=== PATIENT | female | born 1990 | race Caucasian/White ===

== ENCOUNTER 2019-10-05 20:25 | Emergency (ER) | payer SELFPAY ==
[2019-10-05 22:05] LABS: Urine Blood 2+ (NEG); Urine Glucose NEGATIVE (NEG); Urine Protein NEGATIVE (NEG)
[2019-10-05] MEDS ORDERED: KETOROLAC 30 MG/ML INJ ONE (23:34)
[2019-10-05 23:40] LABS: Absolute Lymphocytes (CBC) 1.7 K/uL (0.7-4.9); Basophils % 0.2 % (0-1.3); Hematocrit 43.8 % (36.0-45.0); Lymphocytes % 15.2 % (15.3-44.8); MPV 8.1 fL (7.6-11.3); RBC Red Blood Cell Count 4.39 M/uL (3.86-4.86)
[2019-10-05 23:55] LABS: Albumin 3.6 g/dL (3.4-5.0); Bilirubin Direct 0.2 mg/dL (0-0.2); Bilirubin Total 0.5 mg/dL (0.2-1.0); Potassium 3.6 mmol/L (3.5-5.1); Protein, Total 7.5 g/dL (6.4-8.2)
--- NOTE | 2019-10-06 01:37 | EDPHYS ---
Physician Documentation [facility] Name: Sea Bowen Age: 28 yrs Sex: Female : 1990 Arrival Date: 10/05/2019 Time: 20:28 Bed 14 Private MD: ED Physician Moreno Cloud HPI: 10/06 01:16 This 28 yrs old Female presents to ER via Ambulatory with complaints of tw4 Shortness Of Breath, TIGHTNESS IN CHEST. 01:16 The patient presents with abdominal pain. Onset: The symptoms/episode began/occurred tw4 today. The symptoms do not radiate. Associated signs and symptoms: Pertinent positives: chest pain, shortness of breath, Pertinent negatives: nausea, vomiting, and diarrhea, nausea and vomiting, anorexia, blood in stools, dysuria, fever, headache, hematuria, nausea, palpitations, vaginal discharge, vomiting, vomiting blood. The symptoms are described as dull. Modifying factors: The symptoms are alleviated by nothing, the symptoms are aggravated by nothing. Severity of pain: At its worst the pain was moderate in the emergency department the pain has resolved. The patient has not experienced similar symptoms in the past. [place]: 10/05 20:42 LMP 09/15/2019 tl1 Historical: - Allergies: 20:41 Codeine; tl1 - Home Meds: 20:41 None [Active]; tl1 - PMHx: 20:41 None; tl1 - PSHx: 20:41 ; tl1 - Immunization history:: Adult Immunizations unknown. - Social history:: Smoking status: Patient reports the use of cigarette tobacco products, smokes one pack cigarettes per day. Patient uses alcohol, on a daily basis. - Ebola Screening: : Patient negative for fever greater than or equal to 101.5 degrees Fahrenheit, and additional compatible Ebola Virus Disease symptoms Patient denies exposure to infectious person Patient denies travel to an Ebola-affected area in the 21 days before illness onset. ROS: 10/06 01:16 Constitutional: Negative for fever, chills, and weight loss, Eyes: Negative for injury, tw4 pain, redness, and discharge, Respiratory: Negative for shortness of breath, cough, wheezing, and pleuritic chest pain. Back: Negative for injury and pain, MS/Extremity: Negative for injury and deformity, Skin: Negative for injury, rash, and discoloration, Neuro: Negative for headache, weakness, numbness, tingling, and seizure. Cardiovascular: Positive for chest pain, Negative for edema, orthopnea, palpitations, paroxysmal nocturnal dyspnea. Abdomen/GI: Positive for abdominal pain, constipation, Negative for nausea and vomiting, nausea, vomiting, and diarrhea, nausea, vomiting, diarrhea, abdominal cramps, abdominal distension, anorexia, dysphagia. Exam: 01:16 Constitutional: This is a well developed, well nourished patient who is awake, alert, tw4 and in no acute distress. Head/Face: Normocephalic, atraumatic. Chest/axilla: Normal chest wall appearance and motion. Nontender with no deformity. No lesions are appreciated. Cardiovascular: Regular rate and rhythm with a normal S1 and S2. No gallops, murmurs, or rubs. Normal PMI, no JVD. No pulse deficits. Respiratory: Lungs have equal breath sounds bilaterally, clear to auscultation and percussion. No rales, rhonchi or wheezes noted. No increased work of breathing, no retractions or nasal flaring. Abdomen/GI: Soft, non-tender, with normal bowel sounds. No distension or tympany. No guarding or rebound. No evidence of tenderness throughout. Back: No spinal tenderness. No costovertebral tenderness. Full range of motion. MS/ Extremity: Pulses equal, no cyanosis. Neurovascular intact. Full, normal range of motion. Neuro: Awake and alert, GCS 15, oriented to person, place, time, and situation. Cranial nerves II-XII grossly intact. Motor strength 5/5 in all extremities. Sensory grossly intact. Cerebellar exam normal. Normal gait. Vital Signs: 10/05 20:42 BP 126 / 91; Pulse 95; Resp 19; Temp 99.1(O); Pulse Ox 100% ; Weight 54.43 kg; Height 5 tl1 ft. 1 in. (154.94 cm); Pain 0/10; 21:37 BP 135 / 103; Pulse 88; Resp 17 S; Pulse Ox 100% on R/A; ca1 23:00 BP 126 / 93; Pulse 95; Resp 16; Pulse Ox 98% on R/A; jb4 10/06 01:17 BP 108 / 73; Pulse 88; Resp 16; Pulse Ox 100% on R/A; jb4 10/05 20:42 Body Mass Index 22.67 (54.43 kg, 154.94 cm) tl1 MDM: 10/05 21:44 Patient medically screened. 10/06 01:16 Differential diagnosis: bowel obstruction, cholecystitis, diverticulitis, non-specific tw4 abd pain, Perf. Gastric Ulcer. Data reviewed: vital signs, nurses notes. Data reviewed: lab test result(s), CBC, electrolytes, hepatic panel. Data interpreted: Pulse oximetry: Interpretation: normal. Counseling: I had a detailed discussion with the patient and/or guardian regarding: the historical points, exam findings, and any diagnostic results supporting the discharge/admit diagnosis. Medication response: Toradol relieved patient's pain. The symptoms have resolved. Response to treatment: and as a result, I will discharge patient. Special discussion: Based on the patient's Hx, exam, and Dx evaluation, there is no indication for emergent surgery or inpatient Tx. It is understood by the patient/guardian that if the Sx's persist or worsen they need to return immediately for re-evaluation. I discussed with the patient/guardian in detail that at this point there is no indication for admission to the hospital. It is understood, however, that if the symptoms persist or worsen the patient needs to return immediately for re-evaluation. 10/05 21:27 Order name: Urine Dipstick--Ancillary (enter results) [facility] 10/05 21:27 Order name: Urine --Ancillary (enter results) [facility] 10/05 21:28 Order name: Urine Dipstick-Ancillary [facility] 10/05 21:28 Order name: Urine --Ancillary [facility] 10/05 23:08 Order name: Basic Metabolic Panel [facility] 10/05 23:08 Order name: CBC with Diff [facility] 10/05 20:48 Order name: EKG; Complete Time: 20:49 aa1 10/05 20:48 Order name: XRAY Abdomen 1 View (KUB) aa1 10/05 21:36 Order name: XRAY Chest (1 view) ca1 10/05 23:08 Order name: Creatinine for Radiology [facility] 10/05 23:08 Order name: Hepatic Function [facility] 10/05 23:08 Order name: Lipase [facility] 10/05 23:08 Order name: CT Abd/Pelvis - IV Contrast Only [facility] 10/05 20:48 Order name: EKG - Nurse/Tech; Complete Time: 20:54 aa1 10/05 23:08 Order name: IV Saline Lock; Complete Time: 23:23 tw4 10/05 23:08 Order name: Labs collected and sent; Complete Time: 23:23 tw4 Administered Medications: 10/05 23:30 Drug: TORadol 30 mg Route: IVP; Site: left antecubital; jb4 10/06 00:00 Follow up: Response: No adverse reaction; Pain is decreased jb4 Disposition: 10/06/19 01:36 Discharged to Home. Impression: Other viral enteritis. - Condition is Stable. - Discharge Instructions: Viral Gastroenteritis, Adult, [id number]. - Prescriptions for Zofran 4 mg Oral Tablet - take 1 tablet by ORAL route every 12 hours As needed; 6 tablet. Lomotil 2.5- 0.025 mg Oral Tablet - take 1 tablet by ORAL route every 6 hours As needed; 20 tablet. - Medication Reconciliation Form, Thank You Letter, Antibiotic Education, Prescription Opioid Use form. - Follow up: Private Physician; When: Upon discharge from the Emergency Department; Reason: Recheck today's complaints, Continuance of care. - Problem is new. - Symptoms have improved. Signatures: Dispatcher [employer] EDAyala Becerra RN RN aa1 Aby Maradiaga, RN RN tl1 Bran De Jesus RN RN jb4 Moreno Cloud MD MD tw4 Corrections: (The following items were deleted from the chart) 02:01 01:36 10/06/2019 01:36 Discharged to Home. Impression: Other viral enteritis. Condition jb4 is Stable. Forms are Medication Reconciliation Form, Thank You Letter, Antibiotic Education, Prescription Opioid Use. Follow up: Private Physician; When: Upon discharge from the Emergency Department; Reason: Recheck today's complaints, Continuance of care. Problem is new. Symptoms have improved. tw4
--- NOTE | 2019-10-06 01:37 | ER ---
Nurse's Notes [facility] Name: Sea Bowen Age: 28 yrs Sex: Female : 1990 Arrival Date: 10/05/2019 Time: 20:28 Bed 14 Private MD: Diagnosis: Other viral enteritis Presentation: 10/05 20:39 Presenting complaint: Patient states: I felt constipated all day and took some milk of tl1 magnesia and then started having chest tightness, shortness of breath and chest heaviness. I drank a lot of alcohol yesterday and thought the medicine would help. I drink frequently. Transition of care: patient was not received from another setting of care. Onset of symptoms was October 05, 2019. Risk Assessment: Do you want to hurt yourself or someone else? Patient reports no desire to harm self or others. Initial Sepsis Screen: Does the patient meet any 2 criteria? No. Patient's initial sepsis screen is negative. Does the patient have a suspected source of infection? No. Patient's initial sepsis screen is negative. Care prior to arrival: None. 20:39 Method Of Arrival: Ambulatory tl1 20:39 Acuity: MAHESH 3 tl1 Triage Assessment: 20:54 Respiratory: the patient has mild shortness of breath. 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 - Social history:: Smoking status: Patient reports the use of cigarette tobacco products, smokes one pack cigarettes per day. Patient uses alcohol, on a daily basis. - Ebola Screening: : Patient negative for fever greater than or equal to 101.5 degrees Fahrenheit, and additional compatible Ebola Virus Disease symptoms Patient denies exposure to infectious person Patient denies travel to an Ebola-affected area in the 21 days before illness onset. Screenin:49 Abuse screen: Denies threats or abuse. Denies injuries from another. Nutritional ca1 screening: No deficits noted. Tuberculosis screening: No symptoms or risk factors identified. Fall Risk IV access (20 points). Assessment: 20:49 General: Appears in no apparent distress. comfortable, Behavior is calm, cooperative, ca1 appropriate for age. Pain: Complains of pain in mid-sternal area, right breast and left breast Pain does not radiate. Pain currently is 6 out of 10 on a pain scale. Quality of pain is described as pressure, Pain began today Is intermittent. Pain: Also complains of nausea. Neuro: Neuro: Level of Consciousness is awake, alert, obeys commands, Oriented to person, place, time, situation, Appropriate for age. Cardiovascular: Heart tones S1 S2 Capillary refill < 3 seconds Patient's skin is warm and dry. Rhythm is sinus rhythm. Cardiovascular: Reports lightheadedness. Respiratory: Reports shortness of breath Airway is patent Trachea midline Respiratory effort is even, unlabored, Respiratory pattern is regular, Breath sounds are clear bilaterally. Respiratory: Denies cough. GI: Abdomen is round non-distended, Bowel sounds present X 4 quads. Abd is soft and non tender X 4 quads. : No deficits noted. No signs and/or symptoms were reported regarding the genitourinary system. EENT: No deficits noted. No signs and/or symptoms were reported regarding the EENT system. Derm: Skin is intact, is healthy with good turgor, Skin is pink, warm \T\ dry. Musculoskeletal: Circulation, motion, and sensation intact. Capillary refill < 3 seconds. 21:37 Reassessment: Patient appears in no apparent distress at this time. Patient is alert, ca1 oriented x 3, equal unlabored respirations, skin warm/dry/pink. Xray at bedside. 22:15 Reassessment: Patient appears in no apparent distress at this time. Patient and/or jb4 family updated on plan of care and expected duration. Pain level reassessed. Patient is alert, oriented x 3, equal unlabored respirations, skin warm/dry/pink. Provider notified of patients pain, no new orders at this time. 23:30 Reassessment: Patient appears in no apparent distress at this time. Patient and/or jb4 family updated on plan of care and expected duration. Pain level reassessed. Patient is alert, oriented x 3, equal unlabored respirations, skin warm/dry/pink. 10/06 01:17 Reassessment: Patient appears in no apparent distress at this time. Patient and/or jb4 family updated on plan of care and expected duration. Pain level reassessed. Patient is alert, oriented x 3, equal unlabored respirations, skin warm/dry/pink. Patient states feeling better. 02:00 Reassessment: Patient appears in no apparent distress at this time. Patient and/or jb4 family updated on plan of care and expected duration. Pain level reassessed. Patient is alert, oriented x 3, equal unlabored respirations, skin warm/dry/pink. Vital Signs: 10/05 20:42 BP 126 / 91; Pulse 95; Resp 19; Temp 99.1(O); Pulse Ox 100% ; Weight 54.43 kg; Height 5 tl1 ft. 1 in. (154.94 cm); Pain 0/10; 21:37 BP 135 / 103; Pulse 88; Resp 17 S; Pulse Ox 100% on R/A; ca1 23:00 BP 126 / 93; Pulse 95; Resp 16; Pulse Ox 98% on R/A; jb4 10/06 01:17 BP 108 / 73; Pulse 88; Resp 16; Pulse Ox 100% on R/A; jb4 10/05 20:42 Body Mass Index 22.67 (54.43 kg, 154.94 cm) tl1 ED Course: 10/05 20:28 Patient arrived in ED. cf2 20:36 Geetha Gutierrez, RN is Primary Nurse. ca1 20:41 Triage completed. tl1 20:43 Arm band placed on right wrist. tl1 20:43 EKG completed in triage. Results shown to MD. tl1 20:49 Patient has correct armband on for positive identification. Placed in gown. Bed in low ca1 position. Call light in reach. Side rails up X 1. lunchroom monitor on. Pulse ox on. NIBP on. Warm blanket given. 20:49 No provider procedures requiring assistance completed. ca1 20:55 Initial lab(s) drawn, by me, sent to lab. EKG done, by ED staff, reviewed by Moreno Cloud MD. 21:44 Moreno Cloud MD is Attending Physician. tw4 21:46 XRAY Abdomen 1 View (KUB) In Process Unspecified. EDMS 21:46 XRAY Chest (1 view) In Process Unspecified. EDMS 22:27 Notified ED physician of other patient belly pain. jaya3 23:22 Inserted saline lock: 22 gauge in left antecubital area, using aseptic technique. Blood jp3 collected. 23:23 Urine --Ancillary (enter results) Sent. jp3 23:23 Urine Dipstick--Ancillary (enter results) Sent. jp3 10/06 00:51 CT Abd/Pelvis - IV Contrast Only In Process Unspecified. EDMS 02:00 IV discontinued, intact, bleeding controlled, No redness/swelling at site. Pressure jb4 dressing applied. Administered Medications: 10/05 23:30 Drug: TORadol 30 mg Route: IVP; Site: left antecubital; jb4 10/06 00:00 Follow up: Response: No adverse reaction; Pain is decreased jb4 Outcome: 01:36 Discharge ordered by . tw4 02:00 Discharged to home ambulatory, with significant other. jb4 02:00 Condition: stable 02:00 Discharge instructions given to patient, significant other, Instructed on discharge instructions, follow up and referral plans. medication usage, Demonstrated understanding of instructions, follow-up care, medications, Prescriptions given X 2. 02:01 Patient left the ED. jb4 Signatures: Dispatcher [employer] EDMS Aby Maradiaga, RN RN tl1 Bran De Jesus RN RN jb4 Moreno Cloud MD MD tw4 Adrián Flores jp3 Geetha Gutierrez RN RN [facility] Briana Phillips cf2
--- NOTE | 2019-10-06 08:12 | RAD REPORT ---
EXAM DESCRIPTION: Parag Single View10/05/2019 9:46 pm CLINICAL HISTORY: Chest pain COMPARISON: none FINDINGS: The lungs appear clear of acute infiltrate. The heart is normal size IMPRESSION: No acute abnormalities displayed
--- NOTE | 2019-10-06 08:18 | RAD REPORT ---
EXAM DESCRIPTION: RAD - Abdomen 1 View (KUB) - 10/05/2019 9:46 pm CLINICAL HISTORY: Constipation FINDINGS: The bowel gas pattern is unremarkable. There does not appear to a large amount of stool wi thin the colon No abnormal calcifications seen.
--- NOTE | 2019-10-06 10:19 | RAD REPORT ---
EXAM DESCRIPTION: CT - Abdomen Pelvis W Contrast - 10/06/2019 2:32 am CLINICAL HISTORY: 28-year-old female with abdominal pain TECHNIQUE: Axial CT imaging of the abdomen and pelvis was performed following the administration of intravenous contrast.. Sagittal and coronal reconstructed images were then performed. The CT stud y is performed according to ALARA (as low as reasonably achievable) or ALARA/IMAGE GENTLY, with autom atic adjustment of mA and/or kV according to patient size. Performed on: 10/06/2019 at 12:45 AM. COMPARISON: None FINDINGS: Lung bases: The lung bases are clear. Liver: The liver is normal in size and configuration. No focal hepatic abnormalities are identified. Liver attenuation is within normal limits. Spleen: The spleen is normal is size, configuration and attenuation. Gallbladder and bile duct: The gallbladder is well distended and unremarkable. There is no biliary ductal dilatation. Pancreas: The pancreas is grossly normal in size and configuration. Adrenal Glands: The adrenal glands are normal in size and configuration. Kidneys: The kidneys are normal in size and configuration. There is no evidence of hydronephrosis. Th ere is no evidence of nephrolithiasis. No definite solid or cystic renal mass lesions are identified. Stomach: The stomach is grossly normal. There is no definite hiatal hernia. Bowel: The bowel gas pattern is non specific and non obstructive. The cecum and ascending colon are d istended with fluid and there is very colonic wall thickening along the ascending colon. Findings are nonspecific but could reflect mild colitis and/or diarrheal disease. Appendix: The appendix is normal. Free air: There is no evidence of free air. Free fluid: There is no evidence of free fluid. Vasculature: The aorta is normal in caliber and contour. The inferior vena cava is grossly unremarkab le. Lymphadenopathy: No pathologic lymphadenopathy is identified. Bladder: The bladder is incompletely distended on this examination. Reproductive: The uterus is grossly within normal limits. Bones: No acute osseous abnormalities are identified. Soft tissues: No focal soft tissue abnormalities are identified. IMPRESSION: 1. The cecum and ascending colon are distended with fluid and there is very mild colonic wall thickening along the ascending colon. Findings are nonspecific but could reflect mild colitis a nd/or diarrheal disease. 2. Otherwise, unremarkable contrast-enhanced CT scan of the abdomen and pelvis. 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 The interpreting radiologist is f ully responsible for the content of the report.
--- NOTE | 2019-10-06 14:01 | EKG ---
Test Date: 2019-10-05 Test Time: 20:40:32 [facility]: [place] MEASUREMENT RESULTS: Intervals: Rate: 94 LA: 142 QRSD: 74 QT: 342 QTc: 427 [place]: P: 42 LA: 142 QRS: 64 T: 46 INTERPRETIVE STATEMENTS: Normal sinus rhythm Possible Left atrial enlargement Borderline ECG No previous ECG available for comparison Electronically Signed On 10-06-19 14:00:08 DIGITAL OPERATIONS ANALYST by Ambrose Garcia
[2019-10-06 17:05] VITALS: TEMP 99.1
[2019-10-06 17:09] VITALS: BP 108/73; O2SAT 100
== END 2019-10-06 02:01 | disposition home or self-care (01) ==
LOC: ER 20:25
DX: A08.39 Other viral enteritis (principal); R10.9 Unspecified abdominal pain; Z72.0 Tobacco use; Z88.5 Allergy status to narcotic agent
CPT/HCPCS: 36415; 71045; 74018; 74177; 80048; 80076; 81003; 81025; 83690; 85025; 93005; 96374; 99285; Q9967

== ENCOUNTER 2020-03-08 18:04 | Emergency (ER) | payer SELFPAY ==
--- NOTE | 2020-03-08 19:58 | RAD REPORT ---
EXAM DESCRIPTION: RAD - Chest Single View - 03/08/2020 7:19 pm CLINICAL HISTORY: cough, fever, SOB COMPARISON: Portable September 2019 TECHNIQUE: AP portable chest image was obtained 03/08/2020 7:19 pm . FINDINGS: Small portion of each apex was excluded from view. Lung dacosta are clear. Interstitial mar kings match comparison. Heart and vasculature are normal. No measurable pleural effusion and no pneum othorax. No acute bony abnormality seen. No acute aortic findings suspected. IMPRESSION: No acute cardiopulmonary process.
--- NOTE | 2020-03-08 20:26 | EDPHYS ---
Physician Documentation [facility] Name: Sea Bowen Age: 29 yrs Sex: Female : 1990 Arrival Date: 03/08/2020 Time: 18:07 Bed 19 Private MD: ED Physician John Patel HPI: 03/08 18:21 This 29 yrs old Female presents to ER via Ambulatory with complaints of Sore jmm Throat, Cough, Diarrhea, Headache. 18:21 The patient presents with sore throat. Onset: The symptoms/episode began/occurred jmm gradually, 1 day(s) ago. Modifying factors: The symptoms are alleviated by nothing, the symptoms are aggravated by nothing. This is a 29 year old female with no chronic medical conditions that presents to the ED with complaints of cough, sore throat, diarrhea beginning yesterday. Patient states she was exposed to COVID 19 person this past Friday. . Historical: - Allergies: 18:35 No Known Allergies; ss - Home Meds: 18:35 None [Active]; ss - PMHx: 18:35 None; ss - PSHx: 18:35 None; ss - Immunization history:: Adult Immunizations up to date. - Social history:: Smoking status: Patient denies any tobacco usage or history of. ROS: 18:21 Cardiovascular: Negative for chest pain, palpitations, and edema. jmm 18:21 Constitutional: Positive for body aches, fever. 18:21 Respiratory: Positive for cough. 18:21 Respiratory: Positive for 18:21 Abdomen/GI: Positive for diarrhea. 18:21 All other systems are negative. Exam: 18:21 Constitutional: This is a well developed, well nourished patient who is awake, alert, jmm and in no acute distress. Head/Face: atraumatic. Eyes: EOMI, no conjunctival erythema appreciated ENT: Moist Mucus Membranes Neck: Trachea midline, Supple Chest/axilla: Normal chest wall appearance and motion. Cardiovascular: Regular rate and rhythm. No edema appreciated Respiratory: Normal respirations, no respiratory distress appreciated Abdomen/GI: Non distended, soft Back: Normal ROM Skin: General appearance color normal MS/ Extremity: Moves all extremities, no obvious deformities appreciated, no edema noted to the lower extremities Neuro: Awake and alert, normal gait Psych: Behavior is normal, Mood is normal, Patient is cooperative and pleasant Vital Signs: 18:28 BP 129 / 92; Pulse 88; Resp 15; Temp 97.8; Pulse Ox 100% on R/A; Weight 56.7 kg; Height ss 5 ft. 1 in. (154.94 cm); Pain 6/10; 20:00 BP 119 / 85; Pulse 75; Resp 19; Pulse Ox 97% ; fu 21:00 BP 121 / 75; Pulse 85; Resp 16; Pulse Ox 99% ; fu 18:28 Body Mass Index 23.62 (56.70 kg, 154.94 cm) MDM: 18:29 Patient medically screened. [facility] 20:24 Data reviewed: vital signs, nurses notes. Counseling: I had a detailed discussion with denise the patient and/or guardian regarding: the historical points, exam findings, and any diagnostic results supporting the discharge/admit diagnosis, the need for outpatient follow up, to return to the emergency department if symptoms worsen or persist or if there are any questions or concerns that arise at home. ED course: Patient is alert and non toxic in appearance in the ED. Patient is given strict return precautions. Patient understood and agrees with the plan of care. . 03/08 18:20 Order name: Flu; Complete Time: 19:17 03/08 18:20 Order name: Strep; Complete Time: 19:04 03/08 18:20 Order name: COVID-19 03/08 18:27 Order name: Chest Single View XRAY; Complete Time: 20:16 [facility] Administered Medications: No medications were administered Disposition: 03/08/20 20:25 Discharged to Home. Impression: Streptococcal pharyngitis. - Condition is Stable. - Discharge Instructions: Strep Throat. - Prescriptions for Amoxicillin 875 mg Oral Tablet - take 1 tablet by ORAL route every 12 hours for 10 days; 20 tablet. - Medication Reconciliation Form, Thank You Letter, Antibiotic Education, Prescription Opioid Use form. - Follow up: Private Physician; When: 2 - 3 days; Reason: Recheck today's complaints, Continuance of care, Re-evaluation by your physician. Addendum: 03/11/2020 07:20 Co-signature as Attending Physician, John Patel MD. r n Signatures: Dispatcher [employer] EDMS Richard Thacker PA PA m Patel, JohnMD MD jerry Shelby, RN RN Augustine Landin RN RN Corrections: (The following items were deleted from the chart) 03/08 21:08 20:25 03/08/2020 20:25 Discharged to Home. Impression: Streptococcal pharyngitis. fu Condition is Stable. Forms are Medication Reconciliation Form, Thank You Letter, Antibiotic Education, Prescription Opioid Use. Follow up: Private Physician; When: 2 - 3 days; Reason: Recheck today's complaints, Continuance of care, Re-evaluation by your physician. [facility]
--- NOTE | 2020-03-08 20:26 | ER ---
Nurse's Notes [facility] Name: Sea Bowen Age: 29 yrs Sex: Female : 1990 Arrival Date: 03/08/2020 Time: 18:07 Bed 19 Private MD: Diagnosis: Streptococcal pharyngitis Presentation: 03/08 18:28 Chief complaint: Patient states: sore throat, cough, diarrhea and headache that began ss yesterday. Pt partied with her friend Friday and shared a shot glass who recently tested positive for COVID. Coronavirus screen: Surgical mask placed on patient. Patient moved to private room, placed in contact and droplet isolation with eye protection until further assessment. Patient reports a cough. Patient denies shortness of breath or difficulty breathing. Patient denies measured and/or subjective temperature greater than 100.4F prior to today's visit. Patient denies travel on a cruise ship or to a country the [facility] currently lists as an affected area. Patient reports contact with known and/or suspected case of COVID-19. Ebola Screen: Patient denies exposure to infectious person. Patient denies travel to an Ebola-affected area in the 21 days before illness onset. Initial Sepsis Screen: Does the patient meet any 2 criteria? Yes Does the patient have a suspected source of infection? No. Patient's initial sepsis screen is negative. Risk Assessment: Do you want to hurt yourself or someone else? Patient reports no desire to harm self or others. Onset of symptoms was March 06, 2020. 18:28 Method Of Arrival: Ambulatory ss 18:28 Acuity: MAHESH 4 ss Historical: - Allergies: 18:35 No Known Allergies; ss - Home Meds: 18:35 None [Active]; ss - PMHx: 18:35 None; ss - PSHx: 18:35 None; ss - Immunization history:: Adult Immunizations up to date. - Social history:: Smoking status: Patient denies any tobacco usage or history of. Screenin:25 Abuse screen: Denies threats or abuse. Nutritional screening: No deficits noted. ll1 Tuberculosis screening: No symptoms or risk factors identified. Fall Risk None identified. Total Gomez Fall Scale indicates No Risk (0-24 pts). Assessment: 18:30 Neuro: Level of Consciousness is awake, alert, obeys commands, Oriented to person, ll1 place, time, situation, Appropriate for age [employer] Officer are equal bilaterally Moves all extremities. Full function Gait is steady, Speech is normal, Facial symmetry appears normal, Reports headache. Cardiovascular: No deficits noted. Respiratory: Reports cough that is non-productive, Airway is patent Trachea midline Respiratory effort is even, unlabored, Respiratory pattern is regular, symmetrical, Breath sounds are clear bilaterally. GI: Abdomen is flat, Bowel sounds present X 4 quads. Abd is soft and non tender X 4 quads. Reports diarrhea, nausea. : No deficits noted. EENT: Throat is reddened Reports sore throat. Musculoskeletal: Reports + body aches. 19:23 General: Appears in no apparent distress. Behavior is calm, cooperative. Pain: ll1 Complains of pain in head. 20:10 Reassessment: Patient appears in no apparent distress at this time. No changes from fu previously documented assessment. Patient is alert, oriented x 3, equal unlabored respirations, skin warm/dry/pink. 21:00 Reassessment: Patient appears in no apparent distress at this time. Patient is alert, fu oriented x 3, equal unlabored respirations, skin warm/dry/pink. discharge instruction given and explained without complaints made. Vital Signs: 18:28 BP 129 / 92; Pulse 88; Resp 15; Temp 97.8; Pulse Ox 100% on R/A; Weight 56.7 kg; Height ss 5 ft. 1 in. (154.94 cm); Pain 6/10; 20:00 BP 119 / 85; Pulse 75; Resp 19; Pulse Ox 97% ; fu 21:00 BP 121 / 75; Pulse 85; Resp 16; Pulse Ox 99% ; fu 18:28 Body Mass Index 23.62 (56.70 kg, 154.94 cm) ED Course: 18:07 Patient arrived in ED. mr 18:11 Di Olea, ERNA is Primary Nurse. ll1 18:26 Richard Thacker PA is PHCP. m 18:26 John Patel MD is Attending Physician. m 18:30 Patient has correct armband on for positive identification. Bed in low position. Call ll1 light in reach. Side rails up X 1. 18:34 Triage completed. ss 18:35 Arm band placed on right wrist. ss 19:09 Primary Nurse role handed off by Di Olea, ERNA 19:09 Augustine Landin, RN is Primary Nurse. fu 19:15 X-ray(s) taken. fu 19:20 Chest Single View XRAY In Process Unspecified. EDMS 20:00 Flu and/or RSV swab sent to lab. Strep swab sent to lab. covid. fu 21:00 No provider procedures requiring assistance completed. Patient did not have IV access fu during this emergency room visit. 03/09 11:45 Health Dept notified/ PUI# [id number] / Rachana in lab notified. eb Administered Medications: No medications were administered Outcome: 03/08 20:25 Discharge ordered by MD. [facility] 21:00 Discharged to home ambulatory. fu 21:00 Condition: stable 21:00 Discharge instructions given to patient, Instructed on discharge instructions, follow up and referral plans. Demonstrated understanding of instructions, follow-up care. 21:00 Prescriptions given X 1. fu 21:08 Patient left the ED. fu Addendum: 03/10/2020 16:14 Addendum: Other attempted to contact pt regarding negative COVID-19 swab results. d m5 Received message "the subscriber you have dialed is not in service". 16:37 Addendum: Other pt called back, notified of negative COVID result, advised to remain in i w isolation if she still has symptoms, until symptoms free for 72 hours. Signatures: Dispatcher [employer] [facility] Karli Lynn, RN RN dm5 Richard Thacker PA PA [facility] Vanesa Funk Sharmila Rey, Annette Andujar RN, RN RN Augustine Landin, Layne Rai RN, Lynsay, ERNA RN ll1
[2020-03-08 21:16] VITALS: BP 129/92; TEMP 97.8; O2SAT 100
== END 2020-03-08 21:08 | disposition home or self-care (01) ==
LOC: ER 18:04
DX: J02.0 Streptococcal pharyngitis (principal); Z20.828 Contact with and (suspected) exposure to other viral communicable diseases
CPT/HCPCS: 71045; 87081; 87804; 99283; U0001

== ENCOUNTER 2023-03-25 16:40 | Emergency (ER) | payer OTHER ==
--- OUTSIDE RECORDS SUMMARY | 2023-03-25 16:43 | XMS REPORT | Continuity of Care Document ---
:1990 Author Organization [facility] t Address [address] [facility] [address] [place] [id number] Care Team Providers Name Role Phone Unavailable Unavailable Unavailable Problems This patient has no known problems. Allergies, Adverse Reactions, Alerts Allergy Allergy Status Severity Reaction(s) Onset Inactive Treating Comm ents Source Name Type Date Date Clinician NO KNOWN Drug Active [facility] ALLERGIE Class [facility] Medications This patient has no known medications. Procedures This patient has no known procedures. Encounters Start End Encounter Admission Attending Care Care Encounter Source Date/Time Date/Time Type Type Clinicians Facility Department ID 2020-11-13 2020-11-[address] [facility] ERT [id number] [facility] 13:22:00 13:22:00 [facility] Results This patient has no known results.
[2023-03-25 17:11] LABS: Specific Gravity 1.017 (1.005-1.030)
[2023-03-25 17:13] LABS: Absolute Lymphocytes (CBC) 2.5 K/uL (0.7-4.9); Hematocrit 43.1 % (36.0-45.0); MCV 105.8 fL (80-100); MPV 7.5 fL (7.6-11.3); RBC Red Blood Cell Count 4.08 M/uL (3.86-4.86)
[2023-03-25 17:18] LABS: Specific Gravity 1.017 (1.005-1.030); Urine Bacteria 20-50 /HPF (<20); Urine Bilirubin NEGATIVE (Negative); Urine Blood 2+ (Negative); Urine Clarity Extremely Turbid (Clear); Urine Color Yellow (Yellow); Urine Crystals Unidentified Few /HPF (None Seen); Urine Glucose NEGATIVE (Negative); Urine Mucus Slight /HPF (None Seen); Urine Protein 1+ (Negative); Urine RBC 21-50 /HPF (None Seen); Urine Urobilinogen Normal (Normal); Urine WBC Clump Few /HPF (None Seen); Urine pH 6.5 (5.0-7.0)
[2023-03-25 17:30] LABS: Albumin 3.5 g/dL (3.4-5.0); Bilirubin Total 0.4 mg/dL (0.2-1.0); Potassium 3.8 mEq/L (3.5-5.1); Protein, Total 7.7 g/dL (6.4-8.2)
--- NOTE | 2023-03-25 19:06 | RAD REPORT ---
EXAM DESCRIPTION: CT - Abdomen Pelvis W Contrast - 03/25/2023 6:22 pm CLINICAL HISTORY: right sided flank pain, dysuria COMPARISON: Abdomen Pelvis W Contrast dated 10/06/2019 TECHNIQUE: Thin cut axial CT imaging of the abdomen and pelvis was performed following intravenous a dministration of 100 mL Isovue 300. Multiplanar reformats were generated and reviewed. All CT scans are performed using dose optimization technique as appropriate and may include automated exposure control or mA/KV adjustment according to patient size. FINDINGS: No suspicious findings in the lung bases. The liver, spleen, and pancreas show no suspicious findings. Gallbladder and biliary tree are also wi thout suspicious finding. Symmetric renal function is seen with no hydronephrosis or suspicious renal mass. No dilated bowel loops or bowel wall thickening. Nonspecific fluid filling throughout nondistended di stal small bowel. Small focus of marginal soft tissue density encircling fat density adjacent to the descending colon wall, may relate to sequelae of epiploic appendagitis. No free air, free fluid or in flammatory stranding. No hernia, mass or bulky lymphadenopathy. The urinary bladder is suboptimally d istended limiting evaluation, however with diffuse wall thickening. No suspicious bony findings. IMPRESSION: Nonspecific fluid filling throughout nondistended distal small bowel, may relate to ente ritis or diarrheal state. Diffuse urinary bladder wall thickening, suggesting ongoing cystitis. Please correlate clinically and with urinalysis results.
--- NOTE | 2023-03-25 19:33 | RAD REPORT ---
EXAM DESCRIPTION: US - Abdomen Exam Limited - 03/25/2023 6:39 pm CLINICAL HISTORY: right sided pain COMPARISON: Abdomen Pelvis W Contrast dated 10/06/2019 TECHNIQUE: Sonographic grayscale and color flow images of the were obtained. FINDINGS: The gallbladder demonstrates no gallstones. Echogenic layering sludge. No pericholecystic fluid or gallbladder wall thickening. The common bile duct is normal measuring 4 mm. The visualized aspects of the liver demonstrates diffusely increased parenchymal echogenicity suggest ing steatosis. No evidence of intrahepatic biliary dilatation. IMPRESSION: Gallbladder sludge. Diffuse hepatic steatosis. No evidence of acute findings.
--- NOTE | 2023-03-25 19:37 | ER ---
Nurse's Notes [facility] Name: Sea Bowen Age: 32 yrs Sex: Female : 1990 Arrival Date: 03/25/2023 Time: 16:40 Bed 18 Private MD: Diagnosis: UTI/ Urinary tract infection, site not specified;Flank Pain Presentation: 03/25 16:44 Chief complaint: Patient states: she is having pain in her kidney area, and burning ap3 sensation when she urinates. patient reports symptoms started 03/19/23. Coronavirus screen: At this time, the client does not indicate any symptoms associated with coronavirus-19. Ebola Screen: No symptoms or risks identified at this time. Initial Sepsis Screen: Does the patient meet any 2 criteria? No. Patient's initial sepsis screen is negative. Does the patient have a suspected source of infection? Yes: Dysuria/Frequency/Urgency/UTI. Risk Assessment: Do you want to hurt yourself or someone else? Patient reports no desire to harm self or others. Onset of symptoms was March 19, 2023. 16:44 Method Of Arrival: Ambulatory ap3 16:44 Acuity: MAHESH 3 ap3 Triage Assessment: 16:46 General: Appears in no apparent distress. Behavior is calm, cooperative. Pain: ap3 Complains of pain in low back area Pain currently is 4 out of 10 on a pain scale. at worst was 8 out of 10 on a pain scale. Quality of pain is described as burning. Neuro: Level of Consciousness is awake, alert, obeys commands, Oriented to person, place, time, situation. Cardiovascular: Patient's skin is warm and dry. Respiratory: Airway is patent Respiratory effort is even, unlabored, Respiratory pattern is regular, symmetrical. : Reports pain with urination, urgency, urinary frequency. Historical: - Allergies: 16:45 No Known Allergies; ap3 - Home Meds: 16:45 None [Active]; ap3 - PMHx: 16:45 irregular heart beat; ap3 - Immunization history:: Client reports receiving the 2nd dose of the Covid vaccine. - Social history:: Smoking status: Patient reports the use of cigarette tobacco products, smokes one-half pack cigarettes per day. Screenin:47 [facility] ED Fall Risk Assessment (Adult) History of falling in the last 3 months, ap3 including since admission No falls in past 3 months (0 pts). Abuse screen: Denies threats or abuse. Nutritional screening: No deficits noted. Tuberculosis screening: No symptoms or risk factors identified. Assessment: 17:01 Reassessment: Patient appears in no apparent distress at this time. No changes from ld1 previously documented assessment. Patient and/or family updated on plan of care and expected duration. Pain level reassessed. Patient is alert, oriented x 3, equal unlabored respirations, skin warm/dry/pink. See triage assessment. 18:13 Reassessment: Patient appears in no apparent distress at this time. Patient is alert, nj1 oriented x 3, equal unlabored respirations, skin warm/dry/pink. Taken for CT scan via wheelchair. 18:40 Reassessment: Back in ED. nj1 19:46 Reassessment: Patient appears in no apparent distress at this time. Patient and/or nj1 family updated on plan of care and expected duration. Pain level reassessed. Patient is alert, oriented x 3, equal unlabored respirations, skin warm/dry/pink. Vital Signs: 16:44 BP 122 / 92; Pulse 90; Resp 17; Temp 98.2; Pulse Ox 98% ; Weight 59.87 kg; Height 5 ft. ap3 1 in. ; Pain 8/10; 17:01 BP 112 / 72; Pulse 78; Resp 18; Pulse Ox 98% on R/A; ld1 18:12 BP 107 / 72; Pulse 83; Resp 17; Pulse Ox 100% on R/A; nj1 19:45 BP 125 / 89; Pulse 72; Resp 18; Pulse Ox 100% ; Pain 8/10; nj1 16:44 Body Mass Index 24.94 (59.87 kg, 154.94 cm) ap3 16:44 Pain Scale: Adult ap3 19:45 Pain Scale: Adult nj1 ED Course: 16:41 Patient arrived in ED. am2 16:42 Richard Thacker PA is PHCP. jmm 16:42 Jose L Banks MD is Attending Physician. jmm 16:45 Triage completed. ap3 16:47 Arm band placed on right wrist. ap3 16:48 Vanna Goodman, ERNA is Primary Nurse. ld1 16:58 Urine collected: clean catch specimen, cloudy. tm3 17:01 Patient has correct armband on for positive identification. Placed in gown. Bed in low ld1 position. Call light in reach. Side rails up X2. Pulse ox on. NIBP on. Door closed. Noise minimized. Warm blanket given. 17:01 Urinalysis w/ reflexes Sent. ld1 17:01 No provider procedures requiring assistance completed. Inserted saline lock: 20 gauge ld1 in right antecubital area, using aseptic technique. Blood collected. 18:24 CT Abd/Pelvis - IV Contrast Only In Process Unspecified. EDMS 18:41 US Abdomen Limited In Process Unspecified. EDMS 19:35 Morgan Bermudez MD is Referral Physician. [facility] 20:05 IV discontinued, intact, bleeding controlled. nj1 Administered Medications: 19:45 Drug: Rocephin IV 1 grams Route: IV; Rate: calculated rate; Site: right antecubital; nj1 20:00 Follow up: Response: No adverse reaction; IV Status: Completed infusion; IV Intake: nj1 100ml Medication: 17:01 VIS not applicable for this client. ld1 Intake: 20:00 IV: 100ml; Total: 100ml. nj1 Outcome: 19:36 Discharge ordered by . [facility] 20:09 Discharged to home ambulatory. nj1 20:09 Condition: stable 20:09 Discharge instructions given to patient, Instructed on discharge instructions, follow up and referral plans. medication usage, Demonstrated understanding of instructions, follow-up care, medications, Prescriptions given X 2. 20:12 Patient left the ED. nj1 Signatures: Dispatcher [employer] EDIL Jovani Garcia 3 Richard Thacker PA PA Yamila Ott am2 Yamila Marie RN RN ap3 Vanna Goodman, RN RN ld1 Rosa Maria Soriano, ERNA RN nj1 Corrections: (The following items were deleted from the chart) 19:48 19:45 Pulse 72bpm; Resp 18bpm; Pulse Ox 100%; Pain 8/10, Adult; nj1 nj1
--- NOTE | 2023-03-25 19:37 | EDPHYS ---
Physician Documentation [facility] Name: Sea Bowen Age: 32 yrs Sex: Female : 1990 Arrival Date: 03/25/2023 Time: 16:40 Bed 18 Private MD: ED Physician Jose L Banks HPI: 03/25 16:50 This 32 yrs old Female presents to ER via Ambulatory with complaints of Back Pain, jmm Flank Pain. 16:50 The patient presents with pain that is acute. The symptoms are located in the right jmm flank. Onset: The symptoms/episode began/occurred gradually, 6 day(s) ago. The pain radiates. Associated signs and symptoms: Pertinent positives: dysuria. Modifying factors: The patient symptoms are alleviated by nothing, the patient symptoms are aggravated by nothing. The patient has not experienced similar symptoms in the past. Historical: - Allergies: 16:45 No Known Allergies; ap3 - Home Meds: 16:45 None [Active]; ap3 - PMHx: 16:45 irregular heart beat; ap3 - Immunization history:: Client reports receiving the 2nd dose of the Covid vaccine. - Social history:: Smoking status: Patient reports the use of cigarette tobacco products, smokes one-half pack cigarettes per day. ROS: 16:50 Constitutional: Negative for fever, chills, and weight loss, Cardiovascular: Negative jmm for chest pain, palpitations, and edema, Respiratory: Negative for shortness of breath, cough, wheezing, and pleuritic chest pain, Abdomen/GI: Negative for abdominal pain, nausea, vomiting, diarrhea, and constipation. 16:50 Back: Positive for flank pain, on the right. 16:50 All other systems are negative. Exam: 16:50 Constitutional: This is a well developed, well nourished patient who is awake, alert, jmm and in no acute distress. Head/Face: atraumatic. Eyes: EOMI, no conjunctival erythema appreciated ENT: Moist Mucus Membranes Neck: Trachea midline, Supple Chest/axilla: Normal chest wall appearance and motion. Cardiovascular: Regular rate and rhythm. No edema appreciated Respiratory: Normal respirations, no respiratory distress appreciated Abdomen/GI: Non distended Back: Normal ROM Skin: General appearance color normal MS/ Extremity: Moves all extremities, no obvious deformities appreciated, no edema noted to the lower extremities Neuro: Awake and alert Psych: Behavior is normal, Mood is normal, Patient is cooperative and pleasant Vital Signs: 16:44 BP 122 / 92; Pulse 90; Resp 17; Temp 98.2; Pulse Ox 98% ; Weight 59.87 kg; Height 5 ft. ap3 1 in. ; Pain 8/10; 17:01 BP 112 / 72; Pulse 78; Resp 18; Pulse Ox 98% on R/A; ld1 18:12 BP 107 / 72; Pulse 83; Resp 17; Pulse Ox 100% on R/A; nj1 19:45 BP 125 / 89; Pulse 72; Resp 18; Pulse Ox 100% ; Pain 8/10; nj1 16:44 Body Mass Index 24.94 (59.87 kg, 154.94 cm) ap3 16:44 Pain Scale: Adult ap3 19:45 Pain Scale: Adult nj1 MDM: 16:50 Patient medically screened. [facility] 03/26 00:12 Differential diagnosis: Nephrolithiasis, or renal colic, calculus of the ureter, [facility] cholecystitis, cholelithiasis, enteritis, colitis, appendicitis. Data reviewed: vital signs, nurses notes, radiologic studies, CT scan. I considered the following discharge prescriptions or medication management in the emergency department Medications were administered in the Emergency Department. See MAR. Counseling: I had a detailed discussion with the patient and/or guardian regarding: the historical points, exam findings, and any diagnostic results supporting the discharge/admit diagnosis, radiology results, the need for outpatient follow up, to return to the emergency department if symptoms worsen or persist or if there are any questions or concerns that arise at home. 03/25 16:52 Order name: CBC with Diff; Complete Time: 17:23 [facility] 03/25 16:52 Order name: CMP; Complete Time: 17:31 [facility] 03/25 16:52 Order name: Lipase; Complete Time: 17:31 [facility] 03/25 16:52 Order name: Test, Urine; Complete Time: 17:23 [facility] 03/25 16:52 Order name: Urinalysis w/ reflexes; Complete Time: 17:23 [facility] 03/25 17:23 Order name: Urine Culture [facility] 03/25 16:52 Order name: US Abdomen Limited; Complete Time: 19:34 [facility] 03/25 18:06 Order name: CT Abd/Pelvis - IV Contrast Only; Complete Time: 19:09 [facility] 03/25 16:52 Order name: IV Saline Lock; Complete Time: 17:01 [facility] 03/25 16:52 Order name: Labs collected and sent; Complete Time: 17:01 [facility] Administered Medications: 03/25 19:45 Drug: Rocephin IV 1 grams Route: IV; Rate: calculated rate; Site: right antecubital; banner 20:00 Follow up: Response: No adverse reaction; IV Status: Completed infusion; IV Intake: nj1 100ml Disposition: 20:32 I agree with the assessment and plan of care. I reviewed the patient's care provided by the Advanced Practice Provider and agree with the diagnosis and treatment plan. Disposition Summary: 03/25/23 19:36 Discharge Ordered Location: Home [facility] Condition: Stable [facility] Diagnosis - UTI/ Urinary tract infection, site not specified jm - Flank Pain [facility] Followup: [facility] - With: Morgan Bermudez MD - When: 2 - 3 days - Reason: Recheck today's complaints, Continuance of care, Re-evaluation by your physician Discharge Instructions: - Discharge Summary Sheet [facility] - Urinary Tract Infection, Adult [facility] Forms: - Medication Reconciliation Form [facility] - Thank You Letter [facility] - Antibiotic Education [facility] - Prescription Opioid Use [facility] - Patient Portal Instructions.htm [facility] - Work release form nj1 Prescriptions: - Diclofenac Sodium 75 mg Oral Tablet Sustained Release - take 1 tablet by ORAL route 2 times per day; 30 tablet; Refills: 0, Product [facility] Selection Permitted - cefpodoxime 200 mg Oral Tablet - take 1 tablet by ORAL route every 12 hours for 10 days with food; 20 tablet; [facility] Refills: 0, Product Selection Permitted Signatures: Dispatcher [employer] EDRichard Patel PA PA jmm Prokisch, Amanda, RN RN Jose L Tejeda MD MD [id number] Rosa Maria Soriano RN RN nj1
[2023-03-25] MEDS ORDERED: CEFTRIAXONE 1000 MG/VIAL ONE (19:42)
[2023-03-25] MEDS ORDERED: NA CHLORIDE 0.9% 100 ML ONE (19:43)
[2023-03-25 20:52] VITALS: TEMP 98.2
[2023-03-25 20:53] VITALS: O2SAT 100
[2023-03-25 20:55] VITALS: BP 125/89
== END 2023-03-25 20:12 | disposition home or self-care (01) ==
LOC: ER 16:40
DX: N39.0 Urinary tract infection, site not specified (principal); F17.210 Nicotine dependence, cigarettes, uncomplicated
CPT/HCPCS: 87088; 85025; 81001; 87086; 36415; 81025; 83690; 80053; 74177; 76705; 96374; 99284; Q9967; J0696; 87077; 87186

== ENCOUNTER 2025-01-14 15:02 | Emergency (ER) | payer OTHER ==
--- OUTSIDE RECORDS SUMMARY | 2025-01-14 15:06 | XMS REPORT | Continuity of Care Document ---
Author Name Unknown Address [address] [facility] [place] [address] Organization [facility] [place] Address [address] 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 Name Role Phone Pcp, Patient Does Not Have A Primary Care Physic julio c SITA GRIMM Attending Clinician Unavailable UNKNOWN, ATTENDING Attending Clinician Unavailab le [facility] Attending Clinician Un available Unknown, Attending Attending Clinician Unavailab le Doctor Unassigned, [place] Attending Clinician U navailable Sita Grimm DNP Attending Clinician ANDREAS GONZÁLES Attending Clinician Unavailable ANDREAS GONZÁLES Attending Clinician Unavailable Andreas Gonzáles NP Attending Clinician Devika MCCULLOUGH Attending Clinician Unavailable Devika MCCULLOUGH Attending Clinician Unavailable Devan PACDevika Attending Clinician [phone] YUSRA SCHWAB Attending Clinician Unavailable YUSRA SCHWAB Attending Clinician Unavailable RAFAL MCGHEE Attending Clinician Unavailable SARTHAK NAVARRO Attending Clinician Unavailable ANDREAS GONZÁLES Admitting Clinician Unavailable RAFAL MCGHEE Admitting Clinician Unavailable Payers Payer Name Policy Type Policy Number Effective Date Expirati on Date Source [facility] [id number] 2024 00:00:00 [facility] [id number] 2023 00:00:00 2023 00:00:00 [place] [id number] 2016 00:00:00 2020 00:00:00 Problems Condition Name Condition Details Condition Category Status Onset Date Resolution Date Last Treatment Date Treating Clinician Comments Source Gastroesop hageal reflux disease without esophagiti s Gastroesop hageal reflux disease without esophagiti s Disease Resolve d 10-12 00:00: 00 2016-03-13 00:00:00 2016-03-13 11:09:08 [facility] Supervisio n of high-risk with insufficie nt care, third trimester Supervisio n of high-risk with insufficie nt care, third trimester Disease Resolve d 09-28 00:00: 00 2016-03-13 00:00:00 2016-03-13 11:08:53 [facility] Smoking trying to quit Smoking trying to quit Disease Resolve d 09-28 00:00: 00 2016-03-13 00:00:00 2016-03-13 11:08:56 [facility] Tobacco use disorder Tobacco use disorder Disease Resolve d 09-28 00:00: 00 2016-03-13 00:00:00 2016-03-13 11:08:58 [facility] Maternal alcohol use complicati ng in third trimester, antepartum Maternal alcohol use complicati ng in third trimester, antepartum Disease Resolve d 09-28 00:00: 00 2016-03-13 00:00:00 2016-03-13 11:09:01 [facility] Depression Depression Disease Resolve d 09-28 00:00: 00 2016-03-13 00:00:00 2016-03-13 11:09:04 [facility] with adoption planned, third trimester with adoption planned, third trimester Disease Resolve d 09-28 00:00: 00 2016-03-13 00:00:00 2016-03-13 11:09:11 [facility] Vaginal discharge Vaginal discharge Disease Resolve d 09-28 00:00: 00 2016-03-13 00:00:00 2016-03-13 11:08:50 [facility] Allergies, Adverse Reactions, Alerts Allergy Name Allergy Type Status Severity Reaction(s) Onset Date Inactive Date Treating Clinician Comments Source NO KNOWN ALLERGIE S Drug Class Active [facility] Social History Social Habit Start Date Stop Date Quantity Comments Source ASSERTION Not [facility] History of Occupation [facility] History of tobacco use Cigarette Smoker [facility] Social function 2024-07-15 00:00:00 2024-07-15 00:00:00 [facility] Alcoholic beverage intake 2024-07-15 00:00:00 2024-07-15 00:00:00 Current drinker of alcohol (finding) [facility] Tobacco Comment 2024-06-01 00:00:00 2024-06-01 00:00:00 1 cig aday [facility] Cigarettes smoked current (pack per day) - Reported 2024-06-01 00:00:00 2024-06-01 00:00:00 [facility] Cigarette pack-years 2024-06-01 00:00:00 2024-06-01 00:00:00 [facility] Tobacco use and exposure 2024-06-01 00:00:00 2024-06-01 00:00:00 Smokeless tobacco non-user [facility] Alcohol Comment 2024-06-01 00:00:00 2024-06-01 00:00:00 1 Beer every other day [facility] Alcohol intake 2023-09-16 00:00:00 2023-09-16 00:00:00 0 /d [facility] Sex assigned at 1990 00:00:00 1990 00:00:00 [facility] Smoking Status Start Date Stop Date Source Smokes tobacco daily 2024-06-01 00:00:00 [facility] Medications Ordered Medication Name Filled Medication Name Start Date Stop Date Current Medication? Ordering Clinician Indication Dosage Frequency Signature (SIG) Comments Components Source metroNIDAZO LE (FLAGYL) tablet 500 mg 2023-09 20:15: 00 07-15 20:23 :00 No 500mg 500 mg, Oral, ONCE, 1 dose, On Deepti 07/15/24 at 1515, MEDINA, Reason for Anti-Infec tive: Empiric Therapy for Suspected Infection, Empiric Therapy Site: Pelvic, Duration of therapy: Once (ED) [facility] doxycycline hyclate (Vibramycin ) capsule 100 mg 2023-09 20:15: 00 07-15 20:22 :00 No 100mg 100 mg, Oral, ONCE, 1 dose, On Deepti 07/15/24 at 1515, MEDINA, Reason for Anti-Infec tive: Empiric Therapy for Suspected Infection, Empiric Therapy Site: Pelvic, Duration of therapy: Once (ED) [facility] cefTRIAXone (ROCEPHIN) 500 mg in NaCl 0.9% (NS) 100 mL piggyback 2023-09 20:15: 00 07-15 20:35 :00 No 500mg 500 mg, IV Piggyback, ONCE, 1 dose, On Deepti 07/15/24 at 1515, Administer over 20 Minutes, 100 mL, Reason for Anti-Infec tive: Empiric Therapy for Suspected Infection, Empiric Therapy Site: Pelvic, Duration of therapy: Once (ED) [facility] ketorolac (TORADOL) injection 30 mg 2023-09 18:15: 00 07-15 18:08 :00 No 30mg 30 mg, Slow IV Push, ONCE, 1 dose, On Deepti 07/15/24 at 1315, Routine [facility] dicyclomine 20 mg tablet 2023-09 00:00: 00 Yes [id number] 20mg Take 1 tablet by mouth 4 (four) times daily as needed for Abdominal pain. [facility] ketorolac 10 mg tablet 2023-09 00:00: 00 Yes [id number] 10mg Take 1 tablet by mouth every 6 (six) hours as needed for Pain (scale 4-6) or Pain (scale 1-3). [facility] etonogestre L (NEXPLANON) implant 68 mg 06-04 14:45: 00 06-04 13:46 :00 No [id number] 68mg 68 mg, Subdermal, ONCE NOW, 1 dose, On Fri06/04/24 at 0945, Routine, Use approved by: TAPE FOLDING MACHINE OPERATOR [facility] ibuprofen 600 mg tablet 05-19 00:00: 00 Yes [id number] 600mg Take 1 tablet by mouth every 6 (six) hours as needed for Pain (scale 4-6). [facility] maalox:diph enhydrAMINE :lidocaine 2 % viscous 1:1:1 (FIRST-MOUT HWASH BLM) oral suspension 15 mL 09-17 05:00: 00 09-17 05:26 :00 No 15mL 15 mL, Oral, ONCE, 1 dose, On Fri09/16/23 at 2300, Routine [facility] pantoprazol e (PROTONIX) 40 mg EC tablet 09-17 00:00: 00 Yes [id number] 40mg Take 1 tablet by mouth in the morning. [facility] ondansetron (ZOFRAN) 4 mg tablet 09-17 00:00: 00 Yes [id number] 4mg Take 1 tablet by mouth every 8 (eight) hours as needed for Nausea and Vomiting (N/V). [facility] Bacillus coagulans (PROBIOTIC, B. COAGULANS,) 10 billion cell CpDR 01-17 19:11: 57 Yes Take by mouth daily. [facility] folic acid (FOLVITE) 400 mcg tablet 01-17 19:11: 57 Yes 400ug Take 1 tablet by mouth in the morning. [facility] pantoprazol e (PROTONIX) 40 mg EC tablet 09-28 00:00: 00 Yes [id number] 40mg Take 1 Tab by mouth daily. [facility] Immunizations Ordered Immunization Name Filled Immunization Name Date Status Comments Source TDAP 2015-10-12 00:00:00 Completed [facility] TDAP Unknown Completed [facility] TDAP Unknown Completed [facility] TDAP Unknown Completed [facility] TDAP Unknown Completed [facility] Vital Signs Vital Name Observation Time Observation Value Comments S selina Systolic blood pressure 2025-01-14 18:57:00 128 mm[Hg] [facility] Diastolic blood pressure 2025-01-14 18:57:00 99 mm[Hg] [facility] Heart rate 2025-01-14 18:56:00 99 /min [facility] Body temperature 2025-01-14 18:56:00 36.5 Joseline [facility] Respiratory rate 2025-01-14 18:56:00 18 /min [facility] Body height 2025-01-14 18:56:00 [facility] Body weight 2025-01-14 18:56:00 [facility]689 [facility] BMI 2025-01-14 18:56:00 24.87 kg/m2 [facility] Oxygen saturation in Arterial blood by Pulse oximetry 2025-01-14 18:56:00 97 /min [facility] Systolic blood pressure 2024-07-15 19:48:00 116 mm[Hg] [facility] Diastolic blood pressure 2024-07-15 19:48:00 90 mm[Hg] [facility] Heart rate 2024-07-15 19:48:00 91 /min [facility] Respiratory rate 2024-07-15 19:48:00 18 /min [facility] Oxygen saturation in Arterial blood by Pulse oximetry 2024-07-15 19:48:00 99 /min [facility] Body temperature 2024-07-15 15:52:00 37.11 Joseline [facility] Body height 2024-07-15 15:52:00 157.5 cm [facility] Body weight 2024-07-15 15:52:00 60.601 [facility] BMI 2024-07-15 15:52:00 24.44 kg/m2 [facility] Systolic blood pressure 2024-06-30 17:50:00 124 mm[Hg] [facility] Diastolic blood pressure 2024-06-30 17:50:00 85 mm[Hg] [facility] Heart rate 2024-06-30 17:50:00 76 /min [facility] Respiratory rate 2024-06-30 17:50:00 18 /min [facility] Body weight 2024-06-30 17:50:00 61.689 kg [facility] BMI 2024-06-30 17:50:00 24.87 kg/m2 [facility] Systolic blood pressure 2024-06-04 13:14:00 123 mm[Hg] [facility] Diastolic blood pressure 2024-06-04 13:14:00 88 mm[Hg] [facility] Heart rate 2024-06-04 13:14:00 91 /min [facility] Body temperature 2024-06-04 13:14:00 36.33 Joseline [facility] Body weight 2024-06-04 13:14:00 61.871 [facility] BMI 2024-06-04 13:14:00 24.95 kg/m2 [facility] Systolic blood pressure 2024-06-01 18:56:00 117 mm[Hg] [facility] Diastolic blood pressure 2024-06-01 18:56:00 82 mm[Hg] [facility] Heart rate 2024-06-01 18:56:00 102 /min [facility] Body temperature 2024-06-01 18:56:00 36.67 Joseline [facility] Body height 2024-06-01 18:56:00 157.5 cm [facility] Body weight 2024-06-01 18:56:00 61.78 kg [facility] BMI 2024-06-01 18:56:00 24.91 kg/m2 [facility] Systolic blood pressure 2024-05-19 15:30:22 132 mm[Hg] [facility] Diastolic blood pressure 2024-05-19 15:30:22 99 mm[Hg] [facility] Heart rate 2024-05-19 15:30:22 74 /min [facility] Body temperature 2024-05-19 15:30:22 36.78 Joseline [facility] Respiratory rate 2024-05-19 15:30:22 18 /min [facility] Oxygen saturation in Arterial blood by Pulse oximetry 2024-05-19 15:30:22 100 /min [facility] Body height 2024-05-19 13:18:00 157.5 cm [facility] Body weight 2024-05-19 13:18:00 60.328 [facility] BMI 2024-05-19 13:18:00 24.33 kg/m2 [facility] Heart rate 2023-09-17 06:15:00 83 /min [facility] Respiratory rate 2023-09-17 06:15:00 18 /min [facility] Oxygen saturation in Arterial blood by Pulse oximetry 2023-09-17 06:15:00 96 /min [facility] Systolic blood pressure 2023-09-17 05:30:00 121 mm[Hg] [facility] Diastolic blood pressure 2023-09-17 05:30:00 77 mm[Hg] [facility] Body temperature 2023-09-17 04:26:00 37.39 Joseline [facility] Body height 2023-09-17 04:26:00 157.5 cm [facility] Body weight 2023-09-17 04:26:00 61.961 [facility] BMI 2023-09-17 04:26:00 24.98 kg/m2 [facility] Procedures Procedure Date / Time Performed Performing Clinician Source US PELVIS COMPLETE WITH TRANSVAGINAL 2024-07-15 18:56:42 Adnreas Gonzáles [facility] COMP. METABOLIC PANEL (37111) 2024-07-15 17:53:00 Andreas Gonzáles [facility] CBC WITH DIFF 2024-07-15 17:53:00 Andreas Gonzáles [facility] URINALYSIS 2024-07-15 17:53:00 Andreas Gonz[facility]les [facility] POCT TEST 2024-07-15 17:52:00 Andreas Gonzáles [facility] POCT TEST 2024-06-04 00:00:00 Sita Grimm [facility] RAPID STREP SCREEN FOR GROUP A 2024-05-19 13:50:00 Devika Mccullough [facility] LIPASE 2023-09-17 05:25:00 Yusra Schwab [facility] COMP. METABOLIC PANEL (53611) 2023-09-17 05:25:00 Yusra Schwab [facility] CBC WITH DIFF 2023-09-17 05:25:00 [facility] 2023-09-17 05:25:00 Yusra Schwab [facility] POCT TEST 2023-09-17 05:17:00 Yusra Schwab [facility] NOTICE OF PRIVACY PRACTICES 2023-09-17 03:55:28 Doctor Unassigned, [place] [facility] CONSENT/REFUSAL FOR DIAGNOSIS AND TREATMENT 2023-09-17 03:54:00 Doctor Unassigned, [place] [facility] Encounters Start Date/Time End Date/Time Encounter Type Admission Type Attending [facility] Care Facility Care Department Encounter ID Source 2025-01-14 13:30:00 2025-01-14 13:57:58 Outpatient R UNKNOWN, ATTENDING [facility] [id number] [facility] 2025-01-14 13:30:00 2025-01-14 13:57:58 Nurse Visit Nurse, [facility] Unknown, Attending Nurse, [facility] 1..840.114 350.1.13.10 4.2.7.2.686 [id number] [facility] 2024-07-19 00:00:00 2024-08-21 18:22:40 Patient Secure Msg Doctor Unassigned, [place] Doctor Unassigned, [place] [facility] ([facility]) ..840.114 350.1.13.10 4.2.7.2.686 [id number] [facility] 2024-07-16 00:00:00 2024-07-16 16:43:12 Telephone Sita Grimm [facility] 1.2.840.114 350.1.13.10 4.2.7.2.686 [id number] [facility] 2024-07-16 00:00:00 2024-07-16 16:30:22 Telephone Daniel Sita [facility] 1.2.840.114 350.1.13.10 4.2.7.2.686 [id number] [facility] 2024-07-15 10:56:00 2024-07-15 15:49:00 Emergency X ANDREAS GONZÁLES [facility] [id number] [facility] 2024-07-15 10:56:00 2024-07-15 15:49:00 Emergency Andreas Gonzáles [facility] 1.2.840.114 350.1.13.10 4.2.7.2.686 [id number] [facility] 2024-07-15 00:00:00 2024-07-15 11:03:12 Telephone Sita Grimm [facility] 1.2.840.114 350.1.13.10 4.2.7.2.686 [id number] [facility] 2024-06-30 13:00:00 2024-06-30 13:30:00 Office Visit Sita Grimm [facility] 1.2.840.114 350.1.13.10 4.2.7.2.686 [id number] [facility] 2024-06-30 13:00:00 2024-06-30 13:00:00 Outpatient R SITA GRIMM [facility] [id number] [facility] 2024-06-24 00:00:00 2024-06-24 10:44:09 Telephone Sita Grimm [facility] 1.2.840.114 350.1.13.10 4.2.7.2.686 [id number] [facility] 2024-06-04 10:30:00 2024-06-04 10:30:00 Outpatient R SITA GRIMM [facility] [id number] [facility] 2024-06-04 08:00:00 2024-06-04 08:34:06 Outpatient R SITA GRIMM [facility] [id number] [facility] 2024-06-04 08:00:00 2024-06-04 08:34:06 [facility] 1.2.840.114 350.1.13.10 4.2.7.2.686 [id number] [facility] 2024-06-01 14:00:00 2024-06-01 14:21:32 Outpatient R SITA GRIMM [facility] [id number] [facility] 2024-06-01 14:00:00 2024-06-01 14:21:32 [facility] 1.2.840.114 350.1.13.10 4.2.7.2.686 [id number] [facility] 2024-05-19 08:19:00 2024-05-19 10:32:00 Emergency X Devika MCCULLOUGH [facility] [id number] [facility] 2024-05-19 08:19:00 2024-05-19 10:32:00 Emergency Devika Mccullough [facility] 1.2.840.114 350.1.13.10 4.2.7.2.686 [id number] [facility] 2023-09-16 22:33:00 2023-09-17 00:26:00 Emergency X YUSRA SCHWAB WAKILI [facility] ERT [id number] [facility] 2023-09-16 22:33:00 2023-09-17 00:26:00 Emergency Yusra Schwab [facility] 1.2.840.114 350.1.13.10 4.2.7.2.686 [id number] [facility] 2020-11-13 13:22:00 2020-11-13 17:18:00 Emergency X RAFAL MCGHEE [facility] E[facility] [id number] [facility] 2016-06-21 09:44:23 2016-06-21 10:36:00 Emergency X SARTHAK NAVARRO [facility] ERT [id number] [facility] Results Test Description Test Time Test Comments Results Resul t Comments Source US PELVIS COMPLETE WITH TRANSVAGINAL 2024-06-17 1 19:24:52 HISTORY: ?Rule out TOA. TECHNIQUE: Both transabdominal and transvaginal pelvic ultrasound studieswere completed by the technologist. FINDINGS: Comparison has been made with 11/13/2020 study. Uterus is elongated shaped, measures approximately 8.2 x 3.0 x 4.8 cm insize with homogeneous echo texture of the myometrium. A few very smallnabothian cysts are seen in the cervix. Small amount of fluid is seenwithin the endocervical canal. Endometrial echo complex is 5.8 mm. No free fluid in the cul-de-sac. Right ovary is 2.9 x 2.5 x 1.9 cm ( 7.16 ml) and left ovary is 2.0 x 1.9 x1.4 cm ( 2.63 ml). Both ovaries contain multiple follicles, more in theright ovary with the largest follicle of 14 mm size in the right ovaryshowed intracystic hemorrhage. CONCLUSIONS: No sonographic signs of TOA. Small amount of secretions withinthe endocervical canal could be a sign of infection/cerviciti [facility]. [id number]00* Test Item Value Reference Range Interpretation Comme nts POCT PREG (test code = 1605) Negative On board controls acceptable with C Line (test code = 3574) Yes POCT PREG LOT # (test code = 3575) POCT PREG TEST DATE ( test code = 3576) [id number] 05:17:00* Test Item Value Reference Range Interpretation Comme nts POCT PREG (test code = 1605) Negative On board controls acceptable with C Line (test code = 3574) Yes POCT PREG LOT # (test code = 3575) [id number] POCT PREG TEST DATE ( test code = 3576) 11/23/2024 Lab Interpretation (test cod e = [id number]) Normal [facility] Notes Date/Time Note Provider Source 2024-07-16 16:41:21 Pt requesting Toradol rx to be sent. I advised her that she needs to be seen. Did not want appt. LAYNE BLAIR RN 07/16/2024 4:42 PM Layne Blair RN [facility] 2024-07-16 16:38:50 Sea Childress is a 33 year old female Pt is calling requesting to speak with nurse regarding her latest ED visit. Has a couple medication related questions. Transferred pt to nurse Tillman. Adrián Noguera [facility] 2024-07-16 16:29:03 Name and verified. Offered a ED f/u visit. Pt wants to wait for her labs to come back. Advised her to back to Ed if she worsens over the weekend. Verbalized understanding. LAYNE BLAIR RN 07/16/2024 4:30 PM Layne Blair RN [facility] 2024-07-16 10:55:01 Was at ED for pelvic pain. Pt would like to speak to a nurse/MD what's the next step. Was provided by dicyclomine tablet for abdominal pain, pt still experiencing pain. Adelita Oneill [facility] 2024-07-15 15:49:04 Discharged by provider. [facility] 2024-07-15 11:01:46 Name and verified, pt states she is still at ER waiting to be seen. Pt states there is a wait, advised pt not to leave and get evaluated for her symptoms. Pt verbalized understanding. Ingrid Bales RN 07/15/2024 11:02 AM Ingrid Bales RN [facility] 2024-07-15 10:55:25 Had arm control removed a few weeks ago. Started having light spotting a week ago but has become more severe. Selina Maradiaga RN [facility] 2024-07-15 10:43:33 Clinic was contacted by the Scheduling team for Womens that patient was needing an appt for abdominal pain.I called patient back she said she was sitting at the [facility] ER with symptoms of dizziness,light headed along with severe abdominal pain. Says she had these symptoms for days, informed her I would document and send information to our nurse. Alysia Rosas [facility] 2024-06-24 10:39:06 Name and verified, pt states she is having sharp pain and tingling since the insertion of her nexplanon. Informed pt this is a possible risk regarding the nexplanon. Pt states this is her second insertion and she just wants it out and would like to rest her arm and take a break from control all together. Does not want another form of bc. Pt states she does heavy lifting at work but did wait a few days before resuming normal work activities. Appt made for pt for 06/30. Ingrid Bales RN 06/24/2024 10:40 AM Ingrid Bales RN [facility] 2024-06-24 09:41:35 Pt 33 yr old female called states she was seen for Nexplanon placement on the May. Pt states she has been experiencing pain and tingling on her Lt arm where Nexplanon was placed. Pt states she wants it removed due to pain and discomfort. Would like a call back to discuss. Fanny Cordon [facility] 2024-05-19 10:31:22 Pt given printed and verbal discharge instructions regarding tonsillitis and sore throat, encouraged hydration, 1 Prescriptions sent. Discussed ibuprofen and to take with food to avoid GI distress. Pt verbalized understanding of instructions, pt awake alert oriented, resp reg unlabored, skin w/d, color appropriate for race, moves all ext well,pt encouraged to follow up with pcp Advised to seek medical attention for new/prolonged/worsening of symptoms, Symptoms improved. Awake, alert oriented, resp reg unlabored, skin w/d, pt leaving amb with steady gait, in no apparent distress, Angélica Bradshaw RN [facility] 2024-05-19 08:17:34 Pt arrived via private car with c/o sore throat that started last night. T Jeannette Holden RN [facility] 2023-09-17 00:24:55 Pt given printed and verbal discharge instructions regarding epigastric pain/rectal bleeding, encouraged hydration, Prescriptions provided Pt verbalized understanding of instructions,pt encouraged to follow up with pcp and or GI Advised to seek medical attention for new/prolonged/worsening of symptoms, No adverse reaction to meds given in ER noted upon discharge PIV d'cd, dressing to site, catheter in tact. Awake, alert oriented, resp reg unlabored, skin w/d, pt leaving in no apparent distress, D DEVELOPMENT MANAGER Yamila Brandon RN [facility] 2023-09-16 22:22:46 Patient ambulatory to ED c/o throwing up blood around 8AM today, bowel movements are black. Last BM was 2-3 hours ago. Patient does have birthcontrol implant in arm. Hx of a "bad gallbladder" diagnosed about 6 months ago. Patient is also c/o upper mid abd pulsating that has been going on since Friday or Friday. D DEVELOPMENT MANAGER Stanley Espana RN [facility]
[2025-01-14] MEDS ORDERED: METOCLOPRAMIDE 10 MG/2mL INJ ONE (15:45)
[2025-01-14] MEDS ORDERED: NA CHLORIDE 0.9% 1,000 ML ONE (15:45)
[2025-01-14] MEDS ORDERED: FAMOTIDINE 20 MG/2 ML VIAL IV ONE (15:53)
[2025-01-14 16:24] LABS: Absolute Eosinophils 0.3 K/uL (0-0.5); Absolute Lymphocytes (CBC) 2.4 K/uL (0.7-4.9); Absolute Monocytes 0.5 K/uL (0.1-1.3); Absolute Neutrophil 6.2 K/uL (1.8-8.0); Basophils % 0.5 % (0-1.3); Eosinophils % 3.6 % (0-4.4); Hematocrit 40.8 % (36.0-45.0); Hemoglobin 14.3 g/dL (12.0-15.0); MCH 37.2 pg (27.0-35.0); MCV 106.1 fL (80-100); MPV 7.5 fL (7.6-11.3); Neutrophils % 65.9 % (41.7-73.7); Platelets 301 thou/uL (152-406); RBC Red Blood Cell Count 3.85 M/uL (3.86-4.86); Red Cell Distribution Width 14.9 % (12.1-15.2)
[2025-01-14 16:26] LABS: Blood Morphology Comment NOTED (NOT SEEN); Macrocytosis 1+; Platelet Estimate ADEQ; White Blood Cell Scan OK (OK)
--- NOTE | 2025-01-14 16:27 | RAD REPORT ---
EXAM: Abdominal exam Limited ultrasound CLINICAL HISTORY: Abdominal pain COMPARISON: 2022 FINDINGS: The gallbladder is contracted limiting evaluation. No obvious gallstones seen. Small amount of gallbladder sludge. Gallbladder wall not thickened. Biliary tree normal caliber Patient complains of pain in the periumbilical region. Small umbilical hernia suspected. IMPRESSION: Contracted gallbladder with small amount of sludge Small umbilical hernia
[2025-01-14 16:41] LABS: Albumin 3.6 g/dL (3.4-5.0); Albumin/Globulin Ratio 0.9 (1.1-1.8); Anion Gap 8.8 mEq/L (5.0-15.0); Bilirubin Total 0.7 mg/dL (0.2-1.0); Globulin 4.2 g/dL (2.3-3.5); Potassium 3.8 mEq/L (3.5-5.1); Protein, Total 7.8 g/dL (6.4-8.2)
[2025-01-14 18:18] LABS: Specific Gravity 1.023 (1.005-1.030); Sqamous Epithelial <5 /HPF (None Seen); Urine Bacteria None Seen /HPF (<20); Urine Bilirubin NEGATIVE (Negative); Urine Blood 1+ (Negative); Urine Clarity Turbid (Clear); Urine Color Light-Yellow (Yellow); Urine Crystals Unidentified Few /HPF (None Seen); Urine Culture Reflex Order NOT NEEDED; Urine Glucose NEGATIVE (Negative); Urine Ketones NEGATIVE (Negative); Urine Microscopic Reflex YN ORDER UMIC; Urine Mucus 2+ /HPF (None Seen); Urine Nitrite NEGATIVE (Negative); Urine Protein NEGATIVE (Negative); Urine Urobilinogen Normal (Normal); Urine WBC <5 /HPF (<5); Urine pH 6.5 (5.0-7.0)
[2025-01-14 18:44] LABS: Specific Gravity 1.023 (1.005-1.030)
--- NOTE | 2025-01-14 18:45 | EDPHYS ---
Physician Documentation [facility] Name: Sea Bowen Age: 34 yrs Sex: Female : 1990 Arrival Date: 01/14/2025 Time: 15:02 Bed 8 Private MD: ED Physician James Goodman HPI: 01/14 15:45 This 34 yrs old Female presents to ER via Ambulatory with complaints of Abdominal Pain, cp Abdominal Swelling, Dizziness. 15:45 The patient presents with abdominal pain mid abdomen and behind umbilicus abdominal cp distention that is diffuse. Onset: The symptoms/episode began/occurred for over 1 month. The symptoms do not radiate. Associated signs and symptoms: Pertinent positives: anorexia, loose and discolored stools, Pertinent negatives: blood in stools, vomiting blood. The symptoms are described as waxing/waning. Modifying factors: the symptoms are aggravated by drinking, food. 15:45 Severity of pain: in the emergency department the pain has improved. 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 Flu vaccine is not up to date. - Infectious Disease History:: Denies. - Social history:: Smoking status: Patient reports the use of cigarette tobacco products, smokes one-half pack cigarettes per day, Reported history of juuling and/or vaping. ROS: 15:50 Constitutional: Negative for body aches, chills, fever, poor PO intake, weight loss, cp 15:50 Eyes: Negative for injury, pain, redness, and discharge, cp 15:50 ENT: Negative for drainage from ear(s), ear pain, sore throat, difficulty swallowing, difficulty handling secretions, 15:50 Cardiovascular: Negative for chest pain, edema, palpitations, 15:50 Respiratory: Negative for cough, shortness of breath, wheezing, 15:50 Abdomen/GI: Positive for abdominal pain, nausea, abdominal distension, anorexia, loose and discolored stools, Negative for constipation, black/tarry stool, rectal bleeding, 15:50 Skin: Negative for rash, 15:50 Neuro: Negative for altered mental status, dizziness, headache, weakness, 15:50 All other systems are negative, Exam: 15:55 Constitutional: The patient appears in no acute distress, alert, awake, cp non-diaphoretic, non-toxic, well developed, well nourished, 15:55 Head/Face: Normocephalic, atraumatic. cp 15:55 Eyes: Periorbital structures: appear normal, Conjunctiva: normal, no exudate, no injection, Sclera: no appreciated abnormality, Lids and lashes: appear normal, bilaterally, 15:55 ENT: External ear(s): are unremarkable, Nose: is normal, Mouth: Lips: moist, Oral mucosa: moist, Posterior pharynx: Airway: no evidence of obstruction, patent, 15:55 Chest/axilla: Inspection: normal, 15:55 Cardiovascular: Rate: normal, Rhythm: regular, 15:55 Respiratory: the patient does not display signs of respiratory distress, Respirations: normal, no use of accessory muscles, no retractions, labored breathing, is not present, Breath sounds: are clear throughout, no decreased breath sounds, no stridor, no wheezing, 15:55 Abdomen/GI: Inspection: abdomen appears normal, Bowel sounds: active, all quadrants, Palpation: soft, in all quadrants, mild abdominal tenderness, in the epigastric area, right upper quadrant and left upper quadrant, rebound tenderness, is not appreciated, involuntary guarding, is not appreciated, 15:55 Back: CVA tenderness, is absent, 15:55 Skin: no rash present. Vital Signs: 15:24 BP 128 / 91; Pulse 87; Resp 17; Temp 98.3(O); Pulse Ox 99% on R/A; Weight 61.69 kg; ap3 Height 5 ft. 2 in. ; Pain 8/10; 17:29 BP 107 / 79; Pulse 65; Resp 16; Pulse Ox 99% ; bp 19:00 BP 109 / 75; Pulse 75; Resp 16; Pulse Ox 99% ; bp 15:24 Body Mass Index 24.87 (61.69 kg, 157.48 cm) ap3 15:24 Pain Scale: Adult ap3 MDM: 15:35 Medical Screening Exam initiated cp 16:00 Differential diagnosis: cholecystitis, Cholelithiasis, gastritis, pancreatitis, Peptic cp Ulcer Disease, Perf. Duodenal Ulcer, Perf. Gastric Ulcer, Ureterolithiasis, urinary tract infection. 18:44 Data reviewed: vital signs, nurses notes, lab test result(s), radiologic studies, cp ultrasound, and as a result, I will discharge patient. 18:44 I considered the following discharge prescriptions or medication management in the emergency department Medications were administered in the Emergency Department. See MAR. Counseling: I had a detailed discussion with the patient and/or guardian regarding the historical points, exam findings, and any diagnostic results supporting the discharge/admit diagnosis, lab results, radiology results, the need for outpatient follow up, a general surgeon, to return to the emergency department if symptoms worsen or persist or if there are any questions or concerns that arise at home. Response to treatment: the patient's symptoms have mildly improved after treatment, and as a result, I will discharge patient. Special discussion: Based on the patient's Hx, exam, and Dx evaluation, there is no indication for emergent surgery or inpatient Tx. It is understood by the patient/guardian that if the Sx's persist or worsen they need to return immediately for re-evaluation. 01/14 15:38 Order name: CBC with Diff; Complete Time: 16:31 01/14 16:31 Interpretation: Normal except: RBC 3.85; MCV 106.1; MCH 37.2; MPV 7.5. 01/14 15:38 Order name: CMP; Complete Time: 17:13 cp 01/14 17:13 Interpretation: Normal except: AST 48; ALT 58; GLOB 4.2; A/G 0.9. 01/14 15:38 Order name: Lipase; Complete Time: 17:13 01/14 15:38 Order name: Test, Urine 01/14 15:38 Order name: UA Rfx Robby Cult if indicated; Complete Time: 18:28 01/14 18:28 Interpretation: Reviewed. 01/14 16:27 Order name: CBC Smear Scan; Complete Time: 16:31 EDMS 01/14 15:38 Order name: US Abdomen Limited; Complete Time: 16:31 01/14 16:31 Interpretation: Report reviewed. 01/14 15:38 Order name: IV Saline Lock; Complete Time: 16:19 01/14 15:38 Order name: Labs collected and sent; Complete Time: 16:19 cp Administered Medications: 16:10 Drug: Famotidine IVP 20 mg IVP once; dilute with 10 mL 0.9% NaCl; give over 2 minutes aa5 Route: IVP; Site: right antecubital; 16:26 Follow up: Response: No adverse reaction aa5 16:10 Drug: NS 0.9% IV 1000 ml IV at 1 bolus Per protocol; to be given as a bolus over 60 aa5 minutes Route: IV; Rate: 1 bolus; Site: right antecubital; 19:02 Follow up: IV Status: Completed infusion bp 16:10 Drug: metoCLOPramide IVP 10 mg IVP once; over 1 to 2 minutes Route: IVP; Site: right aa5 antecubital; 16:26 Follow up: Response: No adverse reaction aa5 18:57 Drug: GI Cocktail without - (Maalox PO 30 ml, Lidocaine Mucous Membrane 2 % 15 bp ml) PO once Route: PO; 19:02 Follow up: Response: No adverse reaction bp Disposition: 16:47 I was immediately available on-site in the Emergency Department for consultation in the ms3 care of the patient. Disposition Summary: 01/14/25 18:44 Discharge Ordered Notes: Location: Home cp Problem: new cp Symptoms: have improved cp Condition: Stable cp Diagnosis - Abdominal pain, unspecified cp - Epigastric abdominal tenderness cp Followup: cp - With: Severo Hines MD - When: 1 week - Reason: Recheck today's complaints Discharge Instructions: - Discharge Summary Sheet cp - Abdominal Pain, Adult cp - Food Choices for Gastroesophageal Reflux Disease, Adult cp - Nausea, Adult cp - Gallbladder Nuclear Scan cp - Gallbladder Eating Plan cp Forms: - Medication Reconciliation Form cp - Antibiotic Education cp - Prescription Opioid Use cp - Patient Portal Instructions cp - Leadership Thank You Letter cp Prescriptions: - Protonix 40 mg Oral Tablet - take 1 tablet ORAL route once daily; 30 tablet; Refills: 0, Product Selection cp Permitted - Zofran 4 mg Oral Tablet - take 1 tablet ORAL route every 12 hours As needed; 20 tablet; Refills: 0, cp Product Selection Permitted Signatures: Dispatcher [employer] Ines Burgos RN RN aa5 Manjeet Willard PA PA cp Peter Vaughn RN RN bp Yamila Marie RN RN ap3 James Goodman DO DO ms3 Corrections: (The following items were deleted from the chart) 15:38 15:38 CBC+H.LAB.BRZ ordered. EDMS EDMS 15:38 15:38 COMPREHENSIVE METABOLIC PANEL+C.LAB.BRZ ordered. EDMS EDMS 15:38 15:38 LIPASE+C.LAB.BRZ ordered. EDMS EDMS 15:38 15:38 Test, Urine+UC.LAB.BRZ ordered. EDMS EDMS 15:38 15:38 UA Rfx Robby Cult if indicated+U.LAB.BRZ ordered. EDMS EDMS 15:39 15:39 Abdomen Limited+US.RAD.BRZ ordered. EDMS EDMS 01/15 18:12 05 15:45 This 34 yrs old Female presents to ER via Ambulatory with complaints of cp Abdominal Pain, Abdominal Swelling, Dizziness. cp 01/15 18:01/13 15:45 The patient presents with abdominal pain mid abdomen and behind umbilicus cp abdominal distention that is diffuse. cp 01/15 18:01/13 15:45 Onset: The symptoms/episode began/occurred for over 1 month, cp cp / 18:01/13 15:45 The symptoms do not radiate. cp cp / 18: 05 15:45 Associated signs and symptoms: Pertinent positives: anorexia, loose and cp discolored stools, Pertinent negatives: blood in stools, vomiting blood, cp / 18:01/13 15:45 The symptoms are described as waxing/waning, cp cp / 18: 05 15:45 Modifying factors: the symptoms are aggravated by drinking, food, cp cp
--- NOTE | 2025-01-14 18:45 | ER ---
Nurse's Notes [facility] Name: Sea Bowen Age: 34 yrs Sex: Female : 1990 Arrival Date: 01/14/2025 Time: 15:02 Bed 8 Private MD: Diagnosis: Abdominal pain, unspecified;Epigastric abdominal tenderness Presentation: 01/14 15:24 Chief complaint: Patient states: she has been having abdominal pain for a couple of ap3 weeks. patient reports that she feels like there is a pit in the bottom of her stomach, and is having heart burn. patient reports having itching on her abdomen and arms, as well as muscle aches. patient states she is having yellow diarrhea immediately after having any food or water. Coronavirus screen: At this time, the client does not indicate any symptoms associated with coronavirus-19. Ebola Screen: No symptoms or risks identified at this time. Initial Sepsis Screen: Does the patient meet any 2 criteria? No. Patient's initial sepsis screen is negative. Does the patient have a suspected source of infection? No. Patient's initial sepsis screen is negative. Risk Assessment: Do you want to hurt yourself or someone else? Patient reports no desire to harm self or others. Onset of symptoms is unknown. 15:24 Method Of Arrival: Ambulatory ap3 15:24 Acuity: MAHESH 3 ap3 Triage Assessment: 15:27 General: Appears in no apparent distress. Behavior is calm, cooperative, appropriate ap3 for age. Pain: Complains of pain in abdomen. Neuro: Level of Consciousness is awake, alert, obeys commands, Oriented to person, place, time, situation. Cardiovascular: Patient's skin is warm and dry. Respiratory: Airway is patent Respiratory effort is even, unlabored, Respiratory pattern is regular, symmetrical. GI: Reports diarrhea, intolerance of fluids, intolerance of food, nausea. 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 Flu vaccine is not up to date. - Infectious Disease History:: Denies. - Social history:: Smoking status: Patient reports the use of cigarette tobacco products, smokes one-half pack cigarettes per day, Reported history of juuling and/or vaping. Screenin:28 Abuse screen: Denies threats or abuse. Nutritional screening: No deficits noted. ap3 Tuberculosis screening: No symptoms or risk factors identified. 19:00 [facility] ED Fall Risk Assessment (Adult) History of falling in the last 3 months, bp including since admission No falls in past 3 months (0 pts) Confusion or Disorientation No (0 pts) Intoxicated or Sedated No (0 pts) Impaired Gait No (0 pts) Mobility Assist Device Used No (0 pt) Altered Elimination No (0 pt) Score/Fall Risk Level 0 - 2 = Low Risk Oriented to surroundings. Assessment: 15:30 General: Appears in no apparent distress. Behavior is calm, cooperative, appropriate bp for age. Pain: Complains of pain in abdomen. 17:30 Reassessment: Patient appears in no apparent distress at this time. Patient is alert, bp oriented x 3, equal unlabored respirations, skin warm/dry/pink. 19:00 Reassessment: DC HOME AMBULATORY. bp Vital Signs: 15:24 BP 128 / 91; Pulse 87; Resp 17; Temp 98.3(O); Pulse Ox 99% on R/A; Weight 61.69 kg; ap3 Height 5 ft. 2 in. ; Pain 8/10; 17:29 BP 107 / 79; Pulse 65; Resp 16; Pulse Ox 99% ; bp 19:00 BP 109 / 75; Pulse 75; Resp 16; Pulse Ox 99% ; bp 15:24 Body Mass Index 24.87 (61.69 kg, 157.48 cm) ap3 15:24 Pain Scale: Adult ap3 ED Course: 15:04 Patient arrived in ED. mr 15:06 James Goodman DO is Attending Physician. ms3 15:06 Manjeet Willard PA is PHCP. cp 15:20 Manjeet Willard PA is PHCP. cp 15:26 Triage completed. ap3 15:28 Arm band placed on right wrist. ap3 15:33 Peter Vaughn, ERNA is Primary Nurse. bp 16:04 US Abdomen Limited In Process Unspecified. EDMS 16:09 Initial lab(s) drawn, by me, sent to lab. Inserted saline lock: 22 gauge in right aa5 antecubital area, using aseptic technique. Blood collected. Flushed with 10 mL NS. 18:44 Severo Hines MD is Referral Physician. cp 19:00 Patient has correct armband on for positive identification. bp 19:00 No provider procedures requiring assistance completed. IV discontinued, intact, bp bleeding controlled, No redness/swelling at site. Pressure dressing applied. Administered Medications: 16:10 Drug: Famotidine IVP 20 mg IVP once; dilute with 10 mL 0.9% NaCl; give over 2 minutes aa5 Route: IVP; Site: right antecubital; 16:26 Follow up: Response: No adverse reaction aa5 16:10 Drug: NS 0.9% IV 1000 ml IV at 1 bolus Per protocol; to be given as a bolus over 60 aa5 minutes Route: IV; Rate: 1 bolus; Site: right antecubital; 19:02 Follow up: IV Status: Completed infusion bp 16:10 Drug: metoCLOPramide IVP 10 mg IVP once; over 1 to 2 minutes Route: IVP; Site: right aa5 antecubital; 16:26 Follow up: Response: No adverse reaction aa5 18:57 Drug: GI Cocktail without - (Maalox PO 30 ml, Lidocaine Mucous Membrane 2 % 15 bp ml) PO once Route: PO; 19:02 Follow up: Response: No adverse reaction bp Medication: 19:00 VIS not applicable for this client. bp Outcome: 18:44 Discharge ordered by . cp 19:00 Discharged to home ambulatory, bp 19:00 Condition: stable 19:00 Discharge instructions given to patient, Instructed on discharge instructions, follow up and referral plans. Demonstrated understanding of instructions, follow-up care, 19:02 Patient left the ED. bp Signatures: Dispatcher [employer] EDMS Good Vanesa, Reg Reg mr ToniInes, RN RN aa5 Manjeet Willard PA PA cp Peltier, Brian, RN RN bp Yamila Marie RN RN ap3 James Goodman DO DO ms3
[2025-01-14] MEDS ORDERED: MAGNES/ALUMIN/SIMET 30ML UCUP ONE (18:50)
[2025-01-14] MEDS ORDERED: LIDOCAINE VISCOUS 2% 10ML ORAL SOLN ONE (18:51)
[2025-01-14 19:19] VITALS: O2SAT 99
[2025-01-14 19:20] VITALS: TEMP 98.3
[2025-01-14 19:22] VITALS: BP 109/75
== END 2025-01-14 19:02 | disposition home or self-care (01) ==
LOC: ER 15:02
DX: R10.816 Epigastric abdominal tenderness (principal); F17.210 Nicotine dependence, cigarettes, uncomplicated
CPT/HCPCS: 96361; 85025; 81001; 36415; 81025; 83690; 80053; 76705; 96375; 96374; 99284; J2765; J7030